=== PATIENT | male | born 1955 | race Caucasian/White ===

== ENCOUNTER → 2017-05-06 | Outpatient (CLI) | payer OTHER | LOC: FIMAGING 08:32 | PROVIDERS: ATTEND Internal Medicine | DX: K21.9 Gastro-esophageal reflux disease without esophagitis (principal); K44.9 Diaphragmatic hernia without obstruction or gangrene ==

== ENCOUNTER → 2018-04-22 | Outpatient (CLI) | payer OTHER | LOC: FIMAGING 09:27 | PROVIDERS: ATTEND Internal Medicine | DX: R74.8 Abnormal levels of other serum enzymes (principal); M19.071 Primary osteoarthritis, right ankle and foot; M19.072 Primary osteoarthritis, left ankle and foot; K76.0 Fatty (change of) liver, not elsewhere classified; J90 Pleural effusion, not elsewhere classified ==

== ENCOUNTER → 2018-05-08 | Outpatient (CLI) | payer OTHER | LOC: FIMAGING 14:19 | PROVIDERS: ATTEND Orthopaedic Surgery Hand Surgery | DX: M79.645 Pain in left finger(s) (principal) ==

== ENCOUNTER → 2018-06-30 | Outpatient (CLI) | payer OTHER | LOC: FIMAGING 15:52 | PROVIDERS: ATTEND Physical Medicine & Rehabilitation Neuromuscular Medicine | DX: M51.36 Other intervertebral disc degeneration, lumbar region (principal); M51.37 Other intervertebral disc degeneration, lumbosacral region; M43.16 Spondylolisthesis, lumbar region; M12.88 Other specific arthropathies, not elsewhere classified, other specified site; M99.73 Connective tissue and disc stenosis of intervertebral foramina of lumbar region; M48.061 Spinal stenosis, lumbar region without neurogenic claudication; Z85.46 Personal history of malignant neoplasm of prostate ==

== ENCOUNTER → 2018-12-16 | Outpatient (CLI) | payer OTHER | LOC: FIMAGING 09:34 | PROVIDERS: ATTEND Internal Medicine | DX: M54.5 Low back pain (principal); Z85.46 Personal history of malignant neoplasm of prostate | CPT/HCPCS: 78300; A9503 ==

== ENCOUNTER → 2018-12-22 | Day surgery (SDC) | payer OTHER ==
[~2018-12-22] MED LIST: IOPAMIDOL (ISOVUE-M 300) 15 ML VIAL ONE; TRIAMCINOLONE ACETONIDE 200 MG/5 ML MDV IM ONE
== END | disposition home or self-care (01) ==
LOC: FIMAGING 14:33
PROVIDERS: ATTEND Neurological Surgery
PROC: 3E0S33Z Introduction of Anti-inflammatory into Epidural Space, Percutaneous Approach (ICD-10-PCS; principal; 2018-12-22)
PROC: 3E0S3BZ Introduction of Anesthetic Agent into Epidural Space, Percutaneous Approach (ICD-10-PCS; principal; 2018-12-22)
DX: M48.062 Spinal stenosis, lumbar region with neurogenic claudication (principal)
CPT/HCPCS: J3301; Q9967

== ENCOUNTER → 2018-12-31 | Outpatient (CLI) | payer OTHER | LOC: FIMAGING 15:17 ==